=== PATIENT | male | born 1995 | race Caucasian/White ===

== ENCOUNTER 2018-11-26 22:04 | Inpatient (IN) | payer MEDICAID, OTHER ==
[~2018-11-26] VITALS: Ht 175.3 cm; Wt 60.0 kg
[2018-11-26 22:50] LABS: BASOPHILS # (AUTO) 0.02 x10^3/uL (0-0.1); BASOPHILS % (AUTO) 0 % (0-1); EOSINOPHILS # (AUTO) 0.04 x10^3/uL (0-0.4); EOSINOPHILS % (AUTO) 1 % (1-7); LYMPHOCYTES # (AUTO) 2.18 x10^3/uL (1-3.4); LYMPHOCYTES % (AUTO) 33 % (22-44); MD NO; MEAN CORPUSCULAR HEMOGLOBIN 30.9 pg (27.5-34.5); MEAN CORPUSCULAR HGB CONC 34.1 g/dL (33.2-36.2); MEAN CORPUSCULAR VOLUME 90.8 fL (81-97); MONOCYTES # (AUTO) 0.36 x10^3/uL (0.2-0.8); MONOCYTES % (AUTO) 6 % (2-9); NEUTROPHILS # (AUTO) 3.93 x10^3/uL (1.8-6.8); NEUTROPHILS % (AUTO) 60 % (42-75); PLATELET COUNT 276 x10^3/uL (130-400); RED BLOOD COUNT 5.29 x10^6/uL (4.38-5.82); RED CELL DISTRIBUTION WIDTH 12.8 % (9.4-14.8)
[2018-11-26 22:55] LABS: AMPHETAMINE SCREEN, URINE Negative (Negative); BARBITURATE SCREEN, URINE Negative (Negative); BENZODIAZEPINE SCREEN, URINE Negative (Negative); CANNABINOID SCREEN, URINE Negative (Negative); COCAINE SCREEN, URINE Negative (Negative); METHADONE SCREEN, URINE Negative (Negative); OPIATE SCREEN, URINE Negative (Negative)
[2018-11-26 22:55] LABS: ALBUMIN 4.3 g/dL (3.4-5.0); ANION GAP 7 mmol/L (5-15); CHLORIDE 108 mmol/L (98-107)
[2018-11-26 22:58] LABS: ALANINE AMINOTRANSFERASE 41 U/L (12-78); ALKALINE PHOSPHATASE 79 U/L (45-117); BILIRUBIN,TOTAL 0.2 mg/dL (0.2-1.0); CREATININE 1.06 mg/dL (0.7-1.3); TOTAL PROTEIN 8.2 g/dL (6.4-8.2)
[2018-11-26 23:07] LABS: ACETAMINOPHEN < 2 mcg/mL (10-30); SALICYLATE LEVEL < 1.7 mg/dL (2.8-20.0)
[2018-11-26] MEDS ORDERED: ZIPRASIDONE 20 MG INJ IM ONE ×2 (23:19→23:30)
[2018-11-27] MEDS ORDERED: HALOPERIDOL 5 MG TABLET PO PRN (11:00)
[2018-11-27] MEDS ORDERED: ACETAMINOPHEN 325 MG TABLET PO PRN (11:00)
[2018-11-27] MEDS ORDERED: ZOLPIDEM 5MG TABLET PO PRN (11:00)
[2018-11-27] MEDS ORDERED: BENZTROPINE 1 MG TABLET PO PRN ×2 (11:00)
[2018-11-27] MEDS ORDERED: ZIPRASIDONE 20MG CAPSULE PO PRN (11:00)
[2018-11-27 12:00] VITALS: BP 131/74
[2018-11-27] MEDS: LORazepam 1MG TABLET PO PRN ×2 (15:02→20:29)
[2018-11-27 20:00] VITALS: BP 138/80
[2018-11-27] MEDS: MIRTAZAPINE 15 MG TABLET PO SCH (20:29)
[2018-11-28 08:17] VITALS: BP 113/72
[2018-11-28] MEDS: LORazepam 1MG TABLET PO PRN ×2 (17:24→20:10)
[2018-11-28 19:23] VITALS: BP 115/78
[2018-11-28] MEDS: MIRTAZAPINE 15 MG TABLET PO SCH (20:10)
[2018-11-29 07:50] VITALS: BP 109/70
[2018-11-29 20:00] VITALS: BP 128/77
[2018-11-29] MEDS: MIRTAZAPINE 15 MG TABLET PO SCH (20:13)
[2018-11-29] MEDS: LORazepam 1MG TABLET PO PRN (20:17)
[2018-11-30 08:00] VITALS: BP 110/69
[2018-11-30] MEDS: LORazepam 1MG TABLET PO PRN ×2 (17:49→20:19)
[2018-11-30 19:48] VITALS: BP 115/76
[2018-11-30] MEDS: MIRTAZAPINE 15 MG TABLET PO SCH (20:19)
[2018-12-01 07:59] VITALS: BP 119/81
[2018-12-01 19:04] VITALS: BP 124/79
[2018-12-01] MEDS: MIRTAZAPINE 15 MG TABLET PO SCH (20:38)
[2018-12-01] MEDS: LORazepam 1MG TABLET PO PRN (22:32)
[2018-12-02 07:56] VITALS: BP 112/74
[2018-12-02 19:55] VITALS: BP 130/80
[2018-12-02] MEDS: MIRTAZAPINE 15 MG TABLET PO SCH (20:27)
[2018-12-02] MEDS: LORazepam 1MG TABLET PO PRN (22:00)
[2018-12-03 07:05] VITALS: BP 107/70
[2018-12-03] MEDS ORDERED: MIRT15TA4 PO (15:53)
== END 2018-12-03 16:15 | disposition home or self-care (01) | DRG 881 ==
LOC: ED 23:55 → EDIP 11-27 08:20 → 2N 11-27 11:20
PROVIDERS: ADMIT Internal Medicine; ATTEND Internal Medicine
DX: F32.9 Major depressive disorder, single episode, unspecified (principal); R45.851 Suicidal ideations; F60.3 Borderline personality disorder; F10.10 Alcohol abuse, uncomplicated; I89.0 Lymphedema, not elsewhere classified; Z63.8 Other specified problems related to primary support group; Z79.899 Other long term (current) drug therapy; Z81.1 Family history of alcohol abuse and dependence; Z83.3 Family history of diabetes mellitus
CPT/HCPCS: 36415; 80053; 80307; 85025; 99285; G0378; J3486